=== PATIENT | female | born 1995 | race Two or more races ===

== ENCOUNTER 2018-12-07 20:10 | Inpatient (IN) | payer OTHER ==
[2018-12-07] MEDS ORDERED: ELECTROLYTE-148 SOLN 1,000 ML IV SCH (21:00)
[2018-12-07 21:37] VITALS: BMI 24.0
[2018-12-07] MEDS ORDERED: BUTORPHANOL TARTRATE 1 MG/ML VIAL ONE ×2 (21:54)
[2018-12-07] MEDS ORDERED: PROMETHAZINE HCL 25 MG/1 ML VIAL ONE (21:54)
[2018-12-07] MEDS ORDERED: BUTORPHANOL TARTRATE 1 MG/ML VIAL IVPB ONE (21:59)
[2018-12-07] MEDS ORDERED: PROMETHAZINE HCL 25 MG/1 ML VIAL IVPUSH ONE (21:59)
[2018-12-07 22:01] LABS: BASO % 0.3 % (0-2.0); EOS % 2.7 % (0-4.5); HEMATOCRIT 29.4 % (32.4-45.2); HEMOGLOBIN 10.4 GM/dL (10.7-15.3); LYMPH % 22.3 % (8-40); MCH 28.4 pg (25.7-33.7); MCHC 35.4 g/dl (32.0-36.0); MEAN CELL VOLUME 80.3 fl (80-96); MEAN PLT VOLUME 8.9 fl (7.5-11.1); MONO % 9.6 % (3.8-10.2); NEUT % 65.1 % (42.8-82.8); PLATELET COUNT 355 K/MM3 (134-434); RBC 3.66 M/mm3 (3.60-5.2); RDW 13.1 % (11.6-15.6); WHITE BLOOD COUNT 7.9 K/mm3 (4.0-10.0)
[2018-12-07 22:10] LABS: INR 0.95 (0.83-1.09); PROTHROMBIN TIME (PATIENT) 11.2 SEC (9.7-13.0)
--- NOTE | 2018-12-07 22:11 | HP ---
Past Medical History - Primary Care Physician PCP:: Izzy Gonzalez - Admission Chief Complaint: 23 yrs 39.3 weeks , admitted for srom & onset LP since 7.oo PM History of Present Illness: care at [address] [place] [address] with LULA .Late Registrant , only 4 visits in the clinic . pt came from [place] chart not available presently. sonograms not available 11/13/18 - panel h/h 11.2/33.2, , Plt 343 , GBS neg, gc/ct neg , quantiferon neg , , urine culture no growth, HgbA1c 4.8, Hiv nr, Hbsag neg, A Pos , Rpr nr, [id number] , Sickle neg , Lead neg, , Rubella iimune History Source: Patient, Medical Record ( chart not available) - Past Medical History COFOUNDER: No: Migraine, Seizure Cardiovascular: No: HTN, Murmur Pulmonary: No: Asthma Gastrointestinal: Yes: Other (none known) Hepatobiliary: No: Hepatitis B Renal/: No: UTI ...: 1 ...Para: 0 ...Term: 0 ...: 0 ...Spon : 0 ...Induced : 0 ...Multiple Gestation: 0 ...LMP: 03/06/18 ... Weeks Gestation by Dates: 39.3 ...EDC by Dates: 12/11/18 Heme/Onc: Yes: Anemia Infectious Disease: No: AIDS, HIV, STD's Psych: No: Addictions, Anxiety, Bipolar, Depression, Psychosis, Schizophrenia Endocrine: Yes: Other (none known) - Past Surgical History Past Surgical History: Yes: None Hx Myomectomy: No Hx Transabdominal Cerclage: No - Smoking History Smoking history: Never smoked Have you smoked in the past 12 months: No - Alcohol/Substance Use Hx Alcohol Use: No History of Substance Use: reports: None Home Medications - Allergies Allergies/Adverse Reactions: Allergies Allergy/AdvReac Type Severity Reaction Status Date / Time No Known Allergies Allergy Verified 12/07/18 21:21 - Home Medications Home Medications: Ambulatory Orders NK [No Known Home Medication] 12/07/18 Physical Exam - Maternity Vital Signs: Vital Signs Temperature 98.3 F 12/07/18 20:10 Pulse Rate 69 12/07/18 20:10 Respiratory Rate 20 20/19 20:10 Blood Pressure 119/73 12/07/18 20:10 O2 Sat by Pulse Oximetry (%) Selected Entries 12/07/18 20:10 Weight 140 lb Constitutional: Yes: Well Nourished, Severe Distress Eyes: Yes: WNL HENT: Yes: WNL, Normocephalic Neck: Yes: WNL, Trachea Midline Cardiovascular: Yes: WNL, Regular Rate and Rhythm Lungs: Clear to auscultation Breast(s): Yes: WNL - Abdominal Exam/OB Fundal Height: 38 Number of Fetuses: Single Presentation: Vertex Contractions: Yes Regularity: Regular (2-3 min) Intensity: Mod/Strong Monitor Mode: External Heart Rate (range): 140 Heart Rate Location: [facility] Category: I Accelerations: Uniform Decelerations: None - Vaginal Exam/OB Vaginal Bleediing: No Dilatation (cm): 3-4 Effacement (%): 100 Amniotic Membrane Status: Ruptured Nitrazine Test: Positive Amniotic Fluid: Yes: Clear Presentation: Vertex/Position Station: 0 - Physical Exam Musculoskeletal: Yes: WNL Extremities: Yes: WNL. No: Calf Tenderness Edema: LLE: Trace, RLE: Trace Deep Tendon Reflex Grade: Normal +2 ...Motor Strength: WNL Psychiatric: Yes: WNL, Alert, Oriented - Labs Lab Results: Laboratory Tests 12/07/18 12/07/18 12/07/18 21:20 21:20 21:20 WBC 7.9 Hgb 10.4 L Hct 29.4 L Plt Count 355 PT with INR 11.20 INR 0.95 PTT (Actin FS) 27.3 Sodium 138 Potassium 4.0 Chloride 103 BUN 14 Creatinine 0.4 L Random Glucose 75 Opiates Screen Methadone Screen Barbiturate Screen Phencyclidine Screen Ur Amphetamines Screen MDMA (Ecstasy) Screen Benzodiazepines Screen Cocaine Screen U Marijuana (THC) Screen Blood Type Antibody Screen 12/07/18 12/07/18 21:20 22:02 WBC Hgb Hct Plt Count PT with INR INR PTT (Actin FS) Sodium Potassium Chloride BUN Creatinine Random Glucose Opiates Screen Negative Methadone Screen Negative Barbiturate Screen Negative Phencyclidine Screen Negative Ur Amphetamines Screen Negative MDMA (Ecstasy) Screen Negative Benzodiazepines Screen Negative Cocaine Screen Negative U Marijuana (THC) Screen Negative Blood Type A POSITIVE Antibody Screen Negative Problem List - Problems (1) Elective delivery before 39 weeks of gestation Code(s): [id number] - (2) Labor established Code(s): MMO4380 - (3) SROM (spontaneous rupture of membranes) Code(s): CHK1327 - Assessment/Plan 23 yrs 39.3 wks iup admitted in labor GBS neg Plan ; Stadol +Phenrgan for labor analgesia vaginal delivery trial of labor
[2018-12-07 22:13] LABS: ACTIVATED PTT 27.3 SECONDS (25.2-36.5)
[2018-12-07] MEDS ORDERED: LIDOCAINE HCL 1% PRESERVATIVE FREE - 30ML VIAL ONE (22:28)
[2018-12-07] MEDS ORDERED: OXYTOCIN 20 UNITS in 0.9% NS 20 UNIT/1,000 ML INFUS.BAG IV ONE (22:28)
[2018-12-07 22:47] LABS: METHADONE, UR NEGATIVE ng/ml (CUTOFF=300); OPIATES, URI NEGATIVE ng/ml (CUTOFF=300); PHENCYCLIDINE,URINE NEGATIVE ng/ml (CUTOFF=25); URINE BARBITURATES NEGATIVE ng/ml (CUTOFF=200); URINE BENZODIAZEPINES NEGATIVE ng/ml (CUTOFF=200)
[2018-12-07 22:48] LABS: COCAINE, UR NEGATIVE ng/ml (CUTOFF=300); URINE AMPHETAMINES NEGATIVE ng/ml (CUTOFF=500)
[2018-12-07 22:55] LABS: ANION GAP 11 MMOL/L (8-16); BLOOD UREA NITROGEN 14 mg/dL (7-18); CALCIUM 8.6 mg/dL (8.5-10.1); CHLORIDE 103 mmol/L (98-107); CO2 24 mmol/L (21-32); CREATININE 0.4 mg/dL (0.55-1.3); GLUCOSE,RANDOM 75 mg/dL (74-106); SODIUM 138 mmol/L (136-145)
[2018-12-07] MEDS ORDERED: FENTANYL/BUPIVACAINE/NS/PF - PCEA - 50 ML DISP.SYRIN EP ONE (23:35)
[2018-12-07] MEDS ORDERED: LIDO 2%/EPI 1:200000 PRESRVFRE (20 ML SDVIAL) ONE (23:37)
[2018-12-07] MEDS ORDERED: BUPIVACAINE HCL/PF 0.25% (2.5MG/ML) 10 ML VIAL ONE (23:37)
[2018-12-08 00:21] LABS: ARTERIAL BLD GAS O2 SATURATION 37.4 % (90-98.9); ARTERIAL BLOOD GAS BASE EXCESS -0.5 meq/l (-2-2); ARTERIAL BLOOD GAS PCO2 45.1 mmHg (35-45); ARTERIAL BLOOD GAS PO2 20.3 mmHg (80-100); ARTERIAL BLOOD GAS pH 7.36 (7.35-7.45)
[2018-12-08 00:27] LABS: VENOUS PC02 40.1 mmHg (38-52); VENOUS PH 7.38 (7.32-7.42); VENOUS PO2 25.2 mmHg (28-48)
[2018-12-08] MEDS ORDERED: BENZOCAINE 20% 57 GM BOTTLE TP PRN (00:35)
[2018-12-08] MEDS ORDERED: WITCH HAZEL 50% (TUCKS) 40 PAD/JAR PAD TP PRN (00:35)
[2018-12-08] MEDS ORDERED: METHYLERGONOVINE MALEATE 0.2 MG/1 ML AMP IM PRN (00:35)
[2018-12-08] MEDS ORDERED: BISACODYL 10 MG SUPP.RECT RC PRN (00:35)
[2018-12-08] MEDS ORDERED: oxyCODONE HCL 5 MG TABLET PO PRN (00:35)
[2018-12-08] MEDS ORDERED: BENZOCAINE 28 GM HEMORRHOIDAL OINTMENT TP PRN (00:35)
--- NOTE | 2018-12-08 00:43 | PN ---
Progress Note, Labor Vaginal Exam #1 Labor Exam Date: 12/07/18 Labor Exam Time: 22:55 Heart Rate (range): 130 Dilatation: 4-5 Effacement (%): 100 Amniotic Membrane Status: Ruptured Station: 0 (0/+1) Remarks: fhr cat-1 uc q 1-4 min Vaginal Exam #2 Labor Exam Date: 12/07/18 Labor Exam Time: 23:45 Heart Rate (range): 130 Dilatation: 10 Effacement (%): 100 Amniotic Membrane Status: Ruptured Presentation: Vertex/Position Station: +2 Remarks: fhr cat-1 , loss of contact UC 2-5 min pt encouraged to push Selected Entries 12/07/18 12/07/18 22:00 23:00 Temperature 98.1 F 97.9 F Pulse Rate 81 84 Blood Pressure 120/76 118/78
[2018-12-08] MEDS ORDERED: OXYTOCIN 20 UNITS in 0.9% NS 20 UNIT/1,000 ML INFUS.BAG IV SCH (00:45)
[2018-12-08] MEDS: IBUPROFEN 600 MG TABLET (FP) PO PRN ×3 (00:45→17:18)
[2018-12-08] MEDS: ACETAMINOPHEN 325 MG TABLET (FP) PO PRN ×3 (00:46→17:17)
[2018-12-08] MEDS ORDERED: IBUPROFEN 600 MG TABLET (FP) PO ONE (00:49)
[2018-12-08] MEDS ORDERED: ACETAMINOPHEN 325 MG TABLET (FP) ONE (00:49)
--- NOTE | 2018-12-08 00:49 | PN ---
Delivery - Delivery Vaginal Delivery: No Problems, Spontaneous (Baby delivered in Vx presentaion, Yonis position, cord around neck released beofore delivery of ant shoulder , placenta & membranes delivered completely .median episiotomy was given which was sutured in layers withchr catgut #2/o under local anesthesia . bladder catheterized & emptied . pr exam mucosa & sphincter intact) Type of Anesthesia: Local Episiotomy/Laceration: Midline EBL (cc): 250 (cathter urine output 150ml karime color ) Delivery, Single - Stages of Labor Date 1st Stage Initiatied: 12/07/18 Time 1st Stage Initiated: 19:00 Date 2nd Stage Initiated: 12/07/18 Time 2nd Stage Initiated: 23:45 Date of Delivery: 12/08/18 Time of Delivery: 00:01 Date Placenta Delivered: 12/08/18 Time Placenta Delivered: 00:05 Placenta: Yes: Spontaneous, Uterine Exploration - Condition of Infant Automation Tester/Health Safety Instructor Present: No Gender: Male Weight: 6 lb Position: Left, OA (cord around neck) Total Hours ROM (Hrs/Mins): 5hr 5 min - 1 Minute Total Score: 9 5 Minutes Total Score: 9 - Feeding Plan Initial Plan: Elected not to breastfeed exclusively throughout hospitalization Remarks - Remarks Remarks: 23 yrs , 39.3 weeks admitted with srom & in labor gbs neg late registrant, at 2, [facility] IV stadol 2 mg + phenrgan 25 mg for labor analgesia was given intrapartum course uneventful
[2018-12-08] MEDS ORDERED: OXYTOCIN 20 UNITS in 0.9% NS 20 UNIT/1,000 ML INFUS.BAG IV ONE (00:51)
[2018-12-08] MEDS: FERROUS SO4 325 MG TABLET (FP) PO SCH ×2 (07:28→17:18)
[2018-12-08] MEDS: PRENATAL VITAMINS W/ FOLIC ACID TABLET (FP) PO SCH (09:49)
[2018-12-08] MEDS ORDERED: FLU VACCINE QUAD 60 MCG/0.5 ML (MDV 18-19) IM ONE (10:00)
[2018-12-08] MEDS ORDERED: DIPHTH,PERTUSS(ACELL),TET 0.5 ML DISP.SYRIN IM ONE (10:00)
[2018-12-09] MEDS: IBUPROFEN 600 MG TABLET (FP) PO PRN ×2 (03:10→16:53)
[2018-12-09] MEDS: ACETAMINOPHEN 325 MG TABLET (FP) PO PRN ×2 (03:10→16:53)
[2018-12-09 08:23] LABS: BASO % 0.7 % (0-2.0); EOS % 3.3 % (0-4.5); HEMATOCRIT 28.8 % (32.4-45.2); LYMPH % 25.4 % (8-40); MCH 28.3 pg (25.7-33.7); MCHC 34.7 g/dl (32.0-36.0); MEAN CELL VOLUME 81.6 fl (80-96); MEAN PLT VOLUME 8.5 fl (7.5-11.1); NEUT % 62.6 % (42.8-82.8); PLATELET COUNT 317 K/MM3 (134-434); RBC 3.53 M/mm3 (3.60-5.2); RDW 13.4 % (11.6-15.6); WHITE BLOOD COUNT 7.7 K/mm3 (4.0-10.0)
[2018-12-09] MEDS: FERROUS SO4 325 MG TABLET (FP) PO SCH ×2 (08:56→16:51)
[2018-12-09] MEDS: PRENATAL VITAMINS W/ FOLIC ACID TABLET (FP) PO SCH (10:27)
--- NOTE | 2018-12-09 14:51 | PN ---
Post Progress Note - Subjective Subjective: 23 yo Para 1 status post vaginal delivery, seen and evaluated. Doing well. Post Day: 1 Type of Delivery: Vital Signs: Vital Signs Temperature 97.2 F L 12/09/18 10:00 Pulse Rate 82 12/09/18 10:00 Respiratory Rate 20 12/09/18 10:00 Blood Pressure 98/54 L 12/09/18 10:00 O2 Sat by Pulse Oximetry (%) 100 12/08/18 01:30 Breast Exam: Yes: Soft Uterus: Yes: Fundus Firm Abdomen/GI: Yes: Abdomen soft, Tolerating PO Lochia: Yes: Rubra Lochia, amount: Moderate Extremities: Yes: Calves non-tender Perineum: Yes: Intact Activity: Ambulating - Labs Labs: CBC WBC 7.7 K/mm3 (4.0-10.0) 12/09/18 08:00 RBC 3.53 M/mm3 (3.60-5.2) L 12/09/18 08:00 Hgb 10.0 GM/dL (10.7-15.3) L 12/09/18 08:00 Hct 28.8 % (32.4-45.2) L 12/09/18 08:00 MCV 81.6 fl (80-96) 12/09/18 08:00 MCH 28.3 pg (25.7-33.7) 12/09/18 08:00 MCHC 34.7 g/dl (32.0-36.0) 12/09/18 08:00 RDW 13.4 % (11.6-15.6) 12/09/18 08:00 Plt Count 317 K/MM3 (134-434) 12/09/18 08:00 MPV 8.5 fl (7.5-11.1) 12/09/18 08:00 Absolute Neuts (auto) 4.8 K/mm3 (1.5-8.0) 12/09/18 08:00 Neutrophils % 62.6 % (42.8-82.8) 12/09/18 08:00 Lymphocytes % 25.4 % (8-40) 12/09/18 08:00 Monocytes % 8.0 % (3.8-10.2) 12/09/18 08:00 Eosinophils % 3.3 % (0-4.5) 12/09/18 08:00 Basophils % 0.7 % (0-2.0) 12/09/18 08:00 Nucleated RBC % 0 % (0-0) 12/09/18 08:00 Problem List - Problems (1) Status post normal vaginal delivery Code(s): [id number] - Assessment/Plan Status post vaginal delivery Stable Continue routine care
[2018-12-09] MEDS ORDERED: SENNOSIDES/DOCUSATE COMBO (SENNA PLUS) TABLET (UD) PO PRN (22:00)
[2018-12-10] MEDS: ACETAMINOPHEN 325 MG TABLET (FP) PO PRN (05:27)
[2018-12-10] MEDS: IBUPROFEN 600 MG TABLET (FP) PO PRN (05:27)
[2018-12-10] MEDS: FERROUS SO4 325 MG TABLET (FP) PO SCH (08:14)
--- NOTE | 2018-12-10 10:02 | DS ---
Physical Exam-PROCESS WORKER Vital Signs: Vital Signs Temperature 98.5 F 12/09/18 21:00 Pulse Rate 86 12/09/18 21:00 Respiratory Rate 18 12/09/18 21:00 Blood Pressure 112/71 12/09/18 21:00 O2 Sat by Pulse Oximetry (%) 100 12/08/18 01:30 Constitutional: Yes: Well Nourished Eyes: Yes: WNL HENT: Yes: WNL Neck: Yes: WNL Cardiovascular: Yes: WNL, Regular Rate and Rhythm Respiratory: Yes: WNL, CTA Bilaterally Gastrointestinal: Yes: WNL, Normal Bowel Sounds ...Rectal Exam: Yes: WNL Renal/: Yes: WNL, Other (voiding without problems) ....Post : Yes: Uterus firm, Uterus non-tender, Moderate lochia rubra ( perineum intact. epi wound healing . perineal sorenes diminished) Breast(s): Yes: WNL (attempting BF. brast & bottle feeding now breast not engorged) Musculoskeletal: Yes: WNL Extremities: Yes: WNL. No: Calf Tenderness Edema: LLE: Trace, RLE: Trace Integumentary: Yes: WNL Wound/Incision: Yes: Clean/Dry Neurological: Yes: WNL, Alert, Oriented ...Motor Strength: WNL Psychiatric: Yes: WNL, Alert, Oriented Labs: CBC, BMP 12/09/18 08:00 12/07/18 21:20 Delivery - Delivery Vaginal Delivery: No Problems, Spontaneous (Baby delivered in Vx presentaion, [place] position, cord around neck released beofore delivery of ant shoulder , placenta & membranes delivered completely .median episiotomy was given which was sutured in layers withchr catgut #2/o under local anesthesia . bladder catheterized & emptied . pr exam mucosa & sphincter intact) Type of Anesthesia: Local Episiotomy/Laceration: Midline EBL (cc): 250 Delivery, Single - Stages of Labor Date 1st Stage Initiatied: 12/07/18 Time 1st Stage Initiated: 19:00 Date 2nd Stage Initiated: 12/07/18 Time 2nd Stage Initiated: 23:45 Date of Delivery: 12/08/18 Time of Delivery: 00:01 Time Placenta Delivered: 00:05 Placenta: Yes: Spontaneous, Uterine Exploration - Condition of Infant Race And Sports Book Writer/Substitute Nurse Present: No Infant Gender: Male Weight: 6 lb Position: Left, OA Total Hours ROM (Hrs/Mins): 5hrs 5min - 1 Minute Total Score: 9 5 Minutes Total Score: 9 - Feeding Plan Initial Plan: Elected not to breastfeed exclusively throughout hospitalization Remarks - Remarks Remarks: 23 yrs , 39.3 weeks admitted with srom & in labor gbs neg late registrant, at [address] [place] [address] IV stadol 2 mg + phenrgan 25 mg for labor analgesia was given intrapartum course uneventful pp course uneventful. anemia counselled peicare instructions given discharge today Discharge Summary Reason For Visit: LABOR ADMIT Current Active Problems Elective delivery before 39 weeks of gestation (Acute) Labor established (Acute) SROM (spontaneous rupture of membranes) (Acute) Status post normal vaginal delivery (Acute) Condition: Stable - Instructions Diet, Activity, Other Instructions: Post Instructions DIET: Continue good diet high in protein, calcium, and iron rich foods. Drink at least eight (8) glasses of water daily in addition to other fluids. ___ Regular diet MEDICATIONS: Continue vitamins and iron as previously directed. Motrin and Tylenol may be taken for minor discomfort. ACTIVITY: Mild to moderate exercise may be started in two (2) weeks. Take frequent rest periods. Resume normal activity after six (6) week check up. WOUND CARE OF OPERATIVE SITE: Continue use of perineal bottle until vaginal discharge stops. Keep area clean. Shower daily. Keep abdominal wound dry. Report any drainage or redness to physician. Tub baths, tampons and douches are not permitted for [address] Breast feeding & or Bottle feeding BREAST CARE: (For those that are not breast feeding): If engorgement occurs: Wear tight fitting bra. Take Tylenol or Motrin for pain. Apply cold packs (ice in bags to each breast ) FAMILY PLANNING: There are many control alternatives to pursue and they should be discussed at your first office visit. You may resume sexual activity after your six (6) week check up. (Remember, breast feeding is not a contraceptive) NEXT PHYSICIAN APPOINTMENT: Be certain to call for a six (6) week appointment, unless otherwise directed. Call [phone] for appt at [address] [place] [address] Call Clinic or got to Emergency Dept if you have any of the following: Heavy vaginal bleeding Painful urination Leg pain Unusual odor noted to vaginal bleeding High fever Red streaking noted on breast Referrals: Izzy Gonzalez MD [Staff Physician] - Disposition: HOME - Home Medications Comprehensive Discharge Medication List: Ambulatory Orders Acetaminophen [Tylenol .Regular Strength -] 650 mg PO Q3H PRN tablet 12/09/18 Benzocaine [Americaine 20% [place] -] 1 spray TP PRN PRN bottle 12/09/18 Ferrous Sulfate [Feosol] 325 mg PO BIDWM #60 tab 12/09/18 Ibuprofen [Motrin -] 200 mg PO Q4H PRN tablet 12/09/18 Vitamins (Sjr) - 1 tab PO DAILY #30 tablet 12/09/18 Witch Mariangel 50% (Tucks) [Tucks Pads -] 1 pad TP PRN PRN pad 12/09/18
[2018-12-10] MEDS: PRENATAL VITAMINS W/ FOLIC ACID TABLET (FP) PO SCH (10:51)
[2018-12-10 11:15] VITALS: BP 95/60; PULSE 76; TEMP 98
== END 2018-12-10 12:15 | disposition home or self-care (01) | DRG 560 ==
LOC: JLDR 20:10 → J3W 12-08 02:10
PROVIDERS: ADMIT Obstetrics & Gynecology; ATTEND Obstetrics & Gynecology
PROC: 0W8NXZZ Division of Female Perineum, External Approach (ICD-10-PCS; principal; 2018-12-08)
PROC: 10E0XZZ Delivery of Products of Conception, External Approach (ICD-10-PCS; 2018-12-08)
DX: O69.81X0 Labor and delivery complicated by cord around neck, without compression, not applicable or unspecified (principal); Z3A.39 39 weeks gestation of pregnancy; Z37.0 Single live birth
CPT/HCPCS: 36415; 36600; 59409; 80048; 80307; 82803; 85025; 85610; 85730; 86593; 86850; 86900; 86901; 90686; 90715; G0008

== ENCOUNTER 2020-07-09 03:10 | Inpatient (IN) | payer OTHER ==
[2020-07-09] MEDS ORDERED: ELECTROLYTE-148 SOLN 1,000 ML IV SCH ×2 (03:40→04:45)
[2020-07-09] MEDS ORDERED: OXYTOCIN 20 UNITS in 0.9% NS 20 UNIT/1,000 ML INFUS.BAG IV ONE ×2 (04:17→07:47)
[2020-07-09] MEDS ORDERED: LIDOCAINE HCL 1% PRESERVATIVE FREE - 30ML VIAL ONE (04:18)
[2020-07-09] MEDS ORDERED: WITCH HAZEL 50% (TUCKS) 40 PAD/JAR PAD TP PRN (04:47)
[2020-07-09] MEDS ORDERED: BENZOCAINE 20% 57 GM BOTTLE TP PRN (04:47)
[2020-07-09] MEDS ORDERED: BENZOCAINE 28 GM HEMORRHOIDAL OINTMENT TP PRN (04:47)
[2020-07-09] MEDS ORDERED: BISACODYL 10 MG SUPP.RECT RC PRN (04:47)
--- NOTE | 2020-07-09 04:53 | HP ---
Past Medical History - Primary Care Physician PCP:: Schuyler Figueroa - Admission Chief Complaint: labor History Source: Patient Limitations to Obtaining History: No Limitations - Past Medical History [place]: No: Alzheimer's, CVA, Dementia, Migraine, Multiple Sclerosis, Peripheral Neuropathy, Parkinson's, Seizure, Syncope, TIA, Vertigo, Other Cardiovascular: No: AFIB, Aneurysm, Aortic Insufficiency, Aortic Stenosis, CAD, CHF, Deep Vein Thrombosis, HTN, Hyperlipdemia, CA, Mitral Insufficiency, Mitral Stenosis, Murmur, Pulmonary Hypertension, Other Pulmonary: No: Asthma, Bronchitis, Cancer, COPD, O2 Dependent, Pneumonia, Previously Intubated, Pulmonary Embolus, Pulmonary Fibrosis, Sleep Apnea, Other Gastrointestinal: Yes: Other (none known). No: Ascites, Cancer, Constipation, Crohn's Disease, Diverticulitis, Diverticulosis, Esophageal Varices, Gastritis, GERD, GI Bleed, Hemorrhoids, Hiatal Hernia, Inflamatory Bowel Disease, Irritable Bowel Disease, Pancreatitis, Peptic Ulcer Disease, Ulcerative Colitis Hepatobiliary: No: Cirrhosis, Cholelithiasis, Cholecystitis, Choledocholithiasis, Hepatitis A, Hepatitis B, Hepatitis C, Other Renal/: No: Renal Failure, Renal Inusuff, BPH, Cancer, Hematuria, Hemodialysis, Neurogenic Bladder, Renal Calculi, UTI, Other Reproductive: No: Ectopic , Endometriosis, Fibroids, PID, Polycystic Ovary Syndrome, Postmenopausal, Other ...: 2 ...Para: 1 Heme/Onc: Yes: Anemia Infectious Disease: No: AIDS, C-Diff, Herpes Zoster, HIV, MRSA, STD's, Tuberculosis, VREF, Other Psych: No: Addictions, Anxiety, Bipolar, Depression, Panic, Psychosis, Schizophrenia, Other Musculoskeletal: No: Bursitis, Chronic low back pain, Hemiparesis, Hemiplegia, Osteoarthritis, Paraplegia, Other Rheumatology: No: Fibromyalgia, Gout, Lupus, Rheumatoid Arthritis, Sarcoidosis, Vasculitis, Other ENT: No: Allergic Rhinitis, Sinusitis, Other Endocrine: Yes: Other (none known). No: Tod's Disease, [place]'s Disease, Diabetes Insipidus, Diabetes Mellitus, Hyperparathyroidism, Hyperthyroidism, Hypothyroidism, Osteopenia, SIADH Dermatology: No: Basal Cell, Cellulitis, Eczema, Melanoma, Psoriasis, Squamous Cell, Other - Past Surgical History Past Surgical History: Yes: None Hx Myomectomy: No Hx Transabdominal Cerclage: No - Smoking History Smoking history: Never smoked Have you smoked in the past 12 months: No - Alcohol/Substance Use Hx Alcohol Use: No History of Substance Use: reports: None Home Medications - Allergies Allergies/Adverse Reactions: Allergies Allergy/AdvReac Type Severity Reaction Status Date / Time No Known Allergies Allergy Verified 07/09/20 07:41 - Home Medications Home Medications: Ambulatory Orders Acetaminophen [Tylenol .Regular Strength -] 650 mg PO Q3H PRN tablet 12/09/18 Benzocaine [Americaine 20% [place] -] 1 spray TP PRN PRN bottle 12/09/18 Ferrous Sulfate [Feosol] 325 mg PO BIDWM #60 tab 12/09/18 Ibuprofen [Motrin -] 200 mg PO Q4H PRN tablet 12/09/18 Vitamins (Sjr) - 1 tab PO DAILY #30 tablet 12/09/18 Witch Mariangel 50% (Tucks) [Tucks Pads -] 1 pad TP PRN PRN pad 12/09/18 Acetaminophen [Tylenol] 325 mg PO Q6H PRN #20 capsule MDD 5 07/10/20 Ferrous Sulfate [Feosol] 325 mg PO DAILY #30 tablet 07/10/20 Ibuprofen 600 mg PO Q6H PRN #20 tablet 07/10/20 Family Medical History Family History: Unremarkable Review of Systems - Review of Systems Constitutional: reports: No Symptoms Eyes: reports: No Symptoms HENT: reports: No Symptoms Neck: reports: No Symptoms Cardiovascular: reports: No Symptoms Respiratory: reports: No Symptoms Gastrointestinal: reports: No Symptoms Genitourinary: reports: No Symptoms Breasts: reports: No Symptoms Reported Musculoskeletal: reports: No Symptoms Integumentary: reports: No Symptoms Neurological: reports: No Symptoms Endocrine: reports: No Symptoms Hematology/Lymphatic: reports: No Symptoms Psychiatric: reports: No Symptoms Physical Exam - Maternity Constitutional: Yes: Well Nourished HENT: Yes: Atraumatic Neck: Yes: Supple Cardiovascular: Yes: Regular Rate and Rhythm - Abdominal Exam/OB Presentation: Vertex Contractions: Yes Regularity: Regular Monitor Mode: External Heart Rate (range): 120 Category: I Accelerations: Uniform Decelerations: None - Vaginal Exam/OB Vaginal Bleeding: No Speculum Exam: No Dilatation (cm): 10 Effacement (%): 100 Presentation: Vertex/Position Station: +1 - Physical Exam Musculoskeletal: Yes: WNL Extremities: Yes: WNL Edema: Yes Edema: LLE: Trace, RLE: Trace Integumentary: Yes: WNL Deep Tendon Reflex Grade: Normal +2 ...Motor Strength: WNL Psychiatric: Yes: Alert, Oriented Imaging - Results Ultrasound: Report Reviewed Assessment/Plan 24 y/o @ 39+wks, no OB complaints, late care and 36wks labs not performed, active labor ready for delivery.
--- NOTE | 2020-07-09 04:59 | PN ---
Delivery - Delivery Type of Anesthesia: None Episiotomy/Laceration: None EBL (cc): 250 Delivery, Single - Stages of Labor Placenta: Yes: Spontaneous - Condition of Gender: Male Position: OA Remarks - Remarks Remarks: 's head delivered with maternal expulsive efforts OA, restituted to CHARISSE. Tight nuchal cord and body x 1 and removed after complete delivery of infant. Shoulders delivered w/o difficulty followed by rest of the body. Umbilical cord clamped and cut. Infant handed off to nurse. Placenta delivered spontaneously and intact. Exam revealed excellent hemostasis and no lacerations, fundus is firm. Sponge/instrument count correct x 2.
[2020-07-09] MEDS ORDERED: OXYTOCIN 20 UNITS in 0.9% NS 20 UNIT/1,000 ML INFUS.BAG IV SCH (05:00)
[2020-07-09] MEDS ORDERED: IBUPROFEN 600 MG TABLET (FP) PO ONE (05:13)
[2020-07-09] MEDS: IBUPROFEN 600 MG TABLET (FP) PO PRN ×2 (05:15→14:41)
[2020-07-09 05:36] LABS: BASO % 0.2 % (0-2.0); EOS % 0.5 % (0-4.5); HEMOGLOBIN 9.3 GM/dL (10.7-15.3); LYMPH % 25.3 % (8-40); MCH 21.2 pg (25.7-33.7); MEAN CELL VOLUME 66.3 fl (80-96); MEAN PLT VOLUME 8.7 fl (7.5-11.1); MONO % 8.5 % (3.8-10.2); NEUT % 65.5 % (42.8-82.8); PLATELET COUNT 287 K/MM3 (134-434); RBC 4.37 M/mm3 (3.60-5.2); RDW 16.8 % (11.6-15.6); WHITE BLOOD COUNT 9.1 K/mm3 (4.0-10.0)
[2020-07-09 05:42] LABS: INR 0.94 (0.83-1.09); PROTHROMBIN TIME (PATIENT) 11.1 SEC (9.7-13.0)
[2020-07-09 05:45] LABS: ACTIVATED PTT 24.5 SECONDS (25.2-36.5)
[2020-07-09 05:55] LABS: BLOOD UREA NITROGEN 8.2 mg/dL (7-18); CALCIUM 8.5 mg/dL (8.5-10.1); CREATININE 0.4 mg/dL (0.55-1.3); POTASSIUM 3.8 mmol/L (3.5-5.1)
[2020-07-09] MEDS: ACETAMINOPHEN 325 MG TABLET (FP) PO PRN ×3 (07:45→19:37)
[2020-07-09] MEDS ORDERED: ACETAMINOPHEN 325 MG TABLET (FP) ONE (07:47)
[2020-07-09 08:30] VITALS: BMI 25.7
[2020-07-09 09:58] LABS: OVALOCYTE 1+; PLATELET ESTIMATE ADEQUATE
[2020-07-10] MEDS: ACETAMINOPHEN 325 MG TABLET (FP) PO PRN ×3 (01:31→18:07)
[2020-07-10] MEDS: IBUPROFEN 600 MG TABLET (FP) PO PRN ×3 (01:32→18:08)
[2020-07-10 08:08] LABS: BASO % 0.5 % (0-2.0); HEMATOCRIT 25.5 % (32.4-45.2); HEMOGLOBIN 8.1 GM/dL (10.7-15.3); LYMPH % 29.4 % (8-40); MCH 21.3 pg (25.7-33.7); MCHC 31.6 g/dl (32.0-36.0); MEAN CELL VOLUME 67.3 fl (80-96); MEAN PLT VOLUME 8.9 fl (7.5-11.1); MONO % 8.2 % (3.8-10.2); NEUT % 60.9 % (42.8-82.8); PLATELET COUNT 261 K/MM3 (134-434); RBC 3.79 M/mm3 (3.60-5.2); RDW 16.7 % (11.6-15.6); WHITE BLOOD COUNT 8.3 K/mm3 (4.0-10.0)
[2020-07-10] MEDS ORDERED: DIPHTH,PERTUSS(ACELL),TET 0.5 ML DISP.SYRIN IM ONE (10:00)
--- NOTE | 2020-07-10 11:51 | DS ---
Physical Examination Vital Signs: Vital Signs Temperature 98.3 F 07/10/20 02:00 Pulse Rate 69 07/10/20 02:00 Respiratory Rate 18 07/10/20 02:00 Blood Pressure 127/47 L 07/10/20 02:00 O2 Sat by Pulse Oximetry (%) 100 07/09/20 05:30 Findings/Remarks: ambulating, tolerating PO, lochia decreased, passing flatus, breast feeding. Desiring infant's circumcision and consent obtained. PP precautions/instructions reviewed. Constitutional: Yes: No Distress HENT: Yes: Atraumatic Neck: Yes: Supple Cardiovascular: Yes: Regular Rate and Rhythm Respiratory: Yes: Regular Gastrointestinal: Yes: Soft ...Rectal Exam: Yes: Other Renal/: Yes: Other Breast(s): Yes: Other Musculoskeletal: Yes: Other Extremities: Yes: WNL Edema: Yes Edema: LLE: Trace, RLE: Trace Integumentary: Yes: WNL Neurological: Yes: Alert, Oriented ...Motor Strength: WNL Psychiatric: Yes: Alert, Oriented Labs: CBC, BMP 07/10/20 07:15 07/09/20 04:30 Discharge Summary Problems reviewed: Yes Reason For Visit: LABOR ADMIT Procedures: Principal: vaginal delivery Hospital Course: uncomplicated vaginal delivery and recovery Plan of Treatment: follow up in 3-4 weeks from discharge from the hospital at [facility] for early PP visit. Condition: Stable - Instructions Diet, Activity, Other Instructions: Return to regular diet and activity as tolerated. Follow up as instructed. Call MD with any questions or concerns. Referrals: Ashlee Kelsey CNM [Certified Nurse Liner Machine Operator] - Ada Dunlap MD [Staff Physician] - Disposition: HOME - Home Medications Comprehensive Discharge Medication List: Ambulatory Orders Acetaminophen [Tylenol .Regular Strength -] 650 mg PO Q3H PRN tablet 12/09/18 Benzocaine [Americaine 20% [place] -] 1 spray TP PRN PRN bottle 12/09/18 Ferrous Sulfate [Feosol] 325 mg PO BIDWM #60 tab 12/09/18 Ibuprofen [Motrin -] 200 mg PO Q4H PRN tablet 12/09/18 Vitamins (Sjr) - 1 tab PO DAILY #30 tablet 12/09/18 Witch Mariangel 50% (Tucks) [Tucks Pads -] 1 pad TP PRN PRN pad 12/09/18 Prescription Drug Monitoring Program (I-STOP) results: I-STOP reviewed and issues identified
[2020-07-10 13:13] VITALS: BP 94/59; PULSE 73; TEMP 98.2
[2020-07-10] MEDS ORDERED: SENNOSIDES/DOCUSATE COMBO (SENNA PLUS) TABLET (UD) PO PRN (22:00)
== END 2020-07-10 19:35 | disposition home or self-care (01) | DRG 560 ==
LOC: JLDR 03:10 → J3W 09:30
PROVIDERS: ADMIT Student in an Organized Health Care Education/Training Program; ATTEND Student in an Organized Health Care Education/Training Program
PROC: 10E0XZZ Delivery of Products of Conception, External Approach (ICD-10-PCS; principal; 2020-07-09)
DX: O69.1XX0 Labor and delivery complicated by cord around neck, with compression, not applicable or unspecified (principal); O69.2XX0 Labor and delivery complicated by other cord entanglement, with compression, not applicable or unspecified; O99.03 Anemia complicating the puerperium; D64.9 Anemia, unspecified; Z3A.39 39 weeks gestation of pregnancy; Z37.0 Single live birth
CPT/HCPCS: 36415; 59409; 80048; 85025; 85610; 85730; 86780; 86850; 86900; 86901; 87389; 90715; U0003

== ENCOUNTER 2024-07-22 08:10 | Inpatient (IN) | payer OTHER ==
[2024-07-22 10:00] LABS: BASO % 0.5 % (0-2.0); EOS % 1.2 % (0-4.5); HEMATOCRIT 29.1 % (32.4-45.2); HEMOGLOBIN 9.6 GM/dL (10.7-15.3); LYMPH % 25.7 % (8-40); MCH 23.2 pg (25.7-33.7); MEAN CELL VOLUME 70.3 fl (80-96); MEAN PLT VOLUME 8.8 fl (7.5-11.1); MONO % 10.9 % (3.8-10.2); NEUT % 61.7 % (42.8-82.8); PLATELET COUNT 270 10^3/uL (134-434); RBC 4.14 M/mm3 (3.60-5.2); RDW 15.6 % (11.6-15.6); WHITE BLOOD COUNT 7.1 K/mm3 (4.0-10.0)
[2024-07-22 10:05] LABS: INR 0.95 (0.83-1.09); PROTHROMBIN TIME (PATIENT) 10.9 SEC (9.7-13.0)
[2024-07-22 10:07] LABS: ACTIVATED PTT 26.4 SECONDS (25.2-36.5)
[2024-07-22 10:27] LABS: BLOOD UREA NITROGEN 8.2 mg/dL (7-18); CALCIUM 8.5 mg/dL (8.5-10.1); CO2 21 mmol/L (21-32); GLUCOSE,RANDOM 69 mg/dL (74-106)
[2024-07-22 10:28] LABS: ANION GAP 9 mmol/L (4-13); CHLORIDE 109 mmol/L (98-107); SODIUM 139 mmol/L (136-145)
[2024-07-22 10:31] LABS: CREATININE 0.3 mg/dL (0.55-1.3)
[2024-07-22 10:44] VITALS: BMI 29.1
[2024-07-22] MEDS: MISOPROSTOL 25 MCG TABLET (COMPOUNDED BY PHARMACY) PV ONE (12:55)
[2024-07-22 14:13] VITALS: RESP 18
[2024-07-22] MEDS: ELECTROLYTE-148 SOLN 1,000 ML IV SCH (15:00)
[2024-07-22] MEDS ORDERED: AMPICILLIN SODIUM 2 GM VIAL ONE (15:54)
[2024-07-22 16:00] LABS: METHADONE, UR NEGATIVE (NEGATIVE); URINE BARBITURATES NEGATIVE (NEGATIVE)
[2024-07-22] MEDS: AMPICILLIN SODIUM 2 GM VIAL IVPB ONE (16:00)
[2024-07-22 16:01] LABS: OPIATES, URI NEGATIVE (NEGATIVE); PHENCYCLIDINE,URINE NEGATIVE (NEGATIVE)
[2024-07-22 16:06] LABS: COCAINE, UR NEGATIVE (NEGATIVE); URINE AMPHETAMINES NEGATIVE (NEGATIVE); URINE BENZODIAZEPINES NEGATIVE (NEGATIVE)
[2024-07-22] MEDS: MISOPROSTOL 25 MCG TABLET (COMPOUNDED BY PHARMACY) BUC SCH (17:00)
[2024-07-22] MEDS ORDERED: BUTORPHANOL TARTRATE 1 MG/ML VIAL ONE (19:34)
[2024-07-22] MEDS ORDERED: PROMETHAZINE HCL 25 MG/1 ML VIAL ONE (19:34)
[2024-07-22] MEDS: PROMETHAZINE HCL 25 MG/1 ML VIAL IVPB ONE (19:38)
[2024-07-22] MEDS: BUTORPHANOL TARTRATE 1 MG/ML VIAL IVPUSH ONE (19:38)
[2024-07-22] MEDS ORDERED: AMPICILLIN SODIUM 1 GM VIAL ONE (20:05)
[2024-07-22] MEDS: AMPICILLIN - 1 GM in SODIUM CHLORIDE 100 ML IVPB SCH (20:10)
[2024-07-22] MEDS ORDERED: OXYTOCIN 30 UNITS in 0.9% NS 30 UNIT/500 ML INFUS.BAG IVPB ONE (20:49)
[2024-07-22] MEDS: OXYTOCIN 30 UNITS in 0.9% NS 30 UNIT/500 ML INFUS.BAG IVPB SCH (21:00)
[2024-07-22] MEDS ORDERED: OXYTOCIN 20 UNITS in 0.9% NS 20 UNIT/1,000 ML INFUS.BAG IV ONE (21:55)
[2024-07-22] MEDS ORDERED: FENTANYL/BUPIVACAINE/NS/PF - PCEA - 50 ML DISP.SYRIN EP ONE (22:28)
[2024-07-22] MEDS: OXYTOCIN 20 UNITS in 0.9% NS 20 UNIT/1,000 ML INFUS.BAG IV SCH (22:51)
[2024-07-22] MEDS ORDERED: WITCH HAZEL 50% (TUCKS) 40 PAD/JAR PAD TP PRN (23:02)
[2024-07-22] MEDS ORDERED: BISACODYL 10 MG SUPP.RECT RC PRN (23:02)
[2024-07-22] MEDS ORDERED: BENZOCAINE 20% 57 GM BOTTLE TP PRN (23:02)
[2024-07-22] MEDS ORDERED: BENZOCAINE 28 GM HEMORRHOIDAL OINTMENT TP PRN (23:02)
[2024-07-22] MEDS ORDERED: METHYLERGONOVINE MALEATE 0.2 MG/1 ML AMP IM PRN (23:02)
[2024-07-22] MEDS: oxyCODONE HCL 5 MG TABLET PO PRN (23:07)
[2024-07-23] MEDS: IBUPROFEN 600 MG TABLET (FP) PO PRN (03:15)
[2024-07-23] MEDS: ACETAMINOPHEN 325 MG TABLET (FP) PO PRN (05:34)
[2024-07-23 08:32] LABS: BASO % 0.6 % (0-2.0); EOS % 0.5 % (0-4.5); HEMATOCRIT 28.7 % (32.4-45.2); HEMOGLOBIN 9.5 GM/dL (10.7-15.3); MCH 23.3 pg (25.7-33.7); MCHC 32.9 g/dl (32.0-36.0); MEAN CELL VOLUME 70.9 fl (80-96); MEAN PLT VOLUME 8.7 fl (7.5-11.1); MONO % 8.4 % (3.8-10.2); NEUT % 69.5 % (42.8-82.8); PLATELET COUNT 277 10^3/uL (134-434); RBC 4.05 M/mm3 (3.60-5.2); RDW 16.4 % (11.6-15.6); WHITE BLOOD COUNT 9.3 K/mm3 (4.0-10.0)
[2024-07-23] MEDS: FERROUS SO4 325 MG TABLET (FP) PO SCH (18:14)
[2024-07-23] MEDS: SENNOSIDES/DOCUSATE COMBO (SENNA PLUS) TABLET (UD) PO PRN (21:04)
[2024-07-24 09:50] VITALS: BP 91/61; PULSE 65; TEMP 98
== END 2024-07-24 13:35 | disposition home or self-care (01) | DRG 560 ==
LOC: JLDR 08:10 → J3W 07-23 01:17
PROVIDERS: ADMIT Obstetrics & Gynecology; ATTEND Obstetrics & Gynecology
PROC: 10E0XZZ Delivery of Products of Conception, External Approach (ICD-10-PCS; principal; 2024-07-22)
DX: O48.0 Post-term pregnancy (principal); Z3A.41 41 weeks gestation of pregnancy; Z37.0 Single live birth
CPT/HCPCS: 36415; 59409; 80048; 80307; 85025; 85610; 85730; 86780; 86850; 86900; 86901